=== PATIENT | female | born 1940 | race Caucasian/White ===

== ENCOUNTER → 2016-02-22 | Outpatient (CLI) | payer MEDICARE ==
--- OUTSIDE RECORDS SUMMARY | 2016-02-22 13:49 | XMS REPORT | Continuity of Care Document ---
Author Author [facility] Organization [facility] Address Unknown Phone Unavailable Care Team Providers Care Toy Assembler Name Role Phone ELDA BLACKWELL MD PCP Insurance Providers Payer Name Policy Number Subscriber Name Relationship [employer] [id number] Alejandra Sevilla 16 Self / Same As Patient Blue [employer] [facility] Supp [id number] Alejandra Sevilla 16 Self / Same As Patient Problems No problem information available. Medications No medication information available. Social History No social history. Hospital Discharge Instructions No hospital discharge instructions. Plan of Care Discharge Date 08/20/15 6:35am Prescriptions See Medication Section Functional Status No functional status results. Allergies, Adverse Reactions, Alerts No allergy information available. Immunizations No immunization records. Vital Signs No known vital signs results. Results No known relevant diagnostic tests, laboratory data and/or discharge summary. Procedures No known history of procedures. Encounters Encounter Location Arrival/Admit Date Discharge/Depart Date Attending Provider Departed Clinic [facility] 08/19/15 7:56pm 08/20/15 6: 35am SOTO BOWEN APRN
== END ==
LOC: RT 13:47
PROVIDERS: ATTEND Internal Medicine
DX: R05 Cough (principal); K21.9 Gastro-esophageal reflux disease without esophagitis
CPT/HCPCS: 94060; 94726; 94729

== ENCOUNTER → 2017-05-24 | Outpatient (CLI) | payer MEDICARE ==
--- NOTE | 2017-05-24 11:02 | Diagnostic Imaging Report ---
INDICATION: Routine screening. COMPARISON: 02/19/2015 and 08/30/2012. TECHNIQUE: Screening digital mammography was performed bilaterally with a Computer Aided Detection (CAD) system. FINDINGS: Scattered fibroglandular densities are identified bilaterally. An ovoid density in the retroareolar left breast appears stable. There is a tiny ovoid density that has developed in the outer portion of the right breast at mid depth. Additional views and ultrasound would be recommended for further evaluation. Benign calcifications are seen bilaterally. The axillae are unremarkable. IMPRESSION: There is a tiny ovoid right breast density, as described. Additional views including spot compression, ML, and rolled CC views are recommended. ACR BI-RADS Category 0: Incomplete. (Needs additional imaging evaluation). Result letter will be mailed to the patient. Note: At least 10% of breast cancer is not imaged by mammography. Dictated by: Dictated on workstation # [id number]
== END ==
LOC: RAD 09:49
PROVIDERS: ATTEND Internal Medicine
DX: Z12.31 Encounter for screening mammogram for malignant neoplasm of breast (principal)
CPT/HCPCS: 77067

== ENCOUNTER → 2017-06-01 | Outpatient (CLI) | payer MEDICARE ==
--- NOTE | 2017-06-01 11:43 | Diagnostic Imaging Report ---
INDICATION: Density in the lateral right breast. Study is performed for further evaluation. Correlation is made with a diagnostic mammogram earlier the same day and screening mammogram from 05/24/2017. Sonographic interrogation of the outer right breast was performed. No solid or cystic mass is identified. No sonographic abnormality is seen. IMPRESSION: BI-RADS 3 No sonographic abnormalities identified. Additional six-month followup of the right breast with mammography is recommended to confirm stability. ACR BI-RADS Category 3: Probably benign findings. Dictated by: Dictated on workstation # [id number]
--- NOTE | 2017-06-01 18:50 | Diagnostic Imaging Report ---
INDICATION: Right breast density. Patient presents for additional views. Correlation is made with prior screening mammogram from 05/24/2017 and prior mammogram from 02/19/2015. Patient returned and rolled CC as well as 3-D spot compression CC and MLO views as well as 3-D mediolateral view of the right breast was performed. The current study was also evaluated with a Computer Aided Detection (CAD) system. FINDINGS: Additional views demonstrate tiny residual density in the outer portion of the right breast at mid depth. Density appears to be at approximately the 9 o'clock location. No suspicious calcifications are seen. No other abnormalities are identified. IMPRESSION: Persistent tiny ovoid density in the outer right breast approximately 9 o'clock location mid depth. Further evaluation of this area with ultrasound is recommended. ACR BI-RADS Category 0: Incomplete. (Needs additional imaging evaluation). Result letter will be mailed to the patient. Note: At least 10% of breast cancer is not imaged by mammography. Dictated by: Dictated on workstation # [id number]
== END ==
LOC: RAD 08:28
PROVIDERS: ATTEND Internal Medicine
DX: R92.2 Inconclusive mammogram (principal)

== ENCOUNTER → 2018-02-20 | Outpatient (CLI) | payer MEDICARE ==
--- NOTE | 2018-02-20 15:53 | Diagnostic Imaging Report ---
INDICATION: COUGH. COMPARISON: 01/11/2016. FINDINGS: Frontal and lateral views of the chest demonstrate normal heart size and pulmonary vascularity. The lungs are clear. There are no signs of infiltrate, pleural effusions or pneumothoraces. The visualized osseous structures show no acute abnormalities. IMPRESSION: 1. No acute process. No signs of infiltrates, effusions or pneumothoraces. Dictated by: Dictated on workstation # [id number]
== END ==
LOC: RAD 15:08
PROVIDERS: ATTEND Nurse Practitioner
DX: R05 Cough (principal)
CPT/HCPCS: 71046

== ENCOUNTER → 2018-02-21 | Outpatient (CLI) | payer MEDICARE ==
--- NOTE | 2018-02-21 19:26 | Diagnostic Imaging Report ---
INDICATION: Right breast density. Patient presents for six-month follow-up. Correlation is made with prior mammograms from 06/01/2017, 05/24/2017, and 02/19/2015. Unilateral right 2-D and 3-D diagnostic mammography was performed with computer-aided Detection (CAD) system. FINDINGS: Scattered densities in right breast are noted. The tiny circumscribed ovoid density in the outer right breast at approximately 9 o'clock location at mid depth appears stable. No new mass is seen. There are benign calcifications in the right breast. The right axilla is unremarkable. IMPRESSION: Stable right breast density. This has fairly benign features. Follow-up mammogram in six months is recommended to confirm stability. ACR BI-RADS Category 3: Probably benign findings. Result letter will be mailed to the patient. Note: At least 10% of breast cancer is not imaged by mammography. Dictated by: Dictated on workstation # [id number]
== END ==
LOC: RAD 13:06
PROVIDERS: ATTEND Internal Medicine
DX: R92.2 Inconclusive mammogram (principal)

== ENCOUNTER → 2018-05-14 | Outpatient (CLI) | payer MEDICARE ==
--- NOTE | 2018-05-14 14:15 | Diagnostic Imaging Report ---
INDICATION: Dyspnea. TECHNIQUE: Two-view chest at 01:17 p.m. CORRELATION STUDY: 02/20/2018. FINDINGS: The heart size, mediastinal configuration and pulmonary vasculature are within normal limits. The lungs are clear with no consolidating infiltrate. There is no significant pleural effusion or pneumothorax. Visualized osseous structures are unremarkable. IMPRESSION: 1. Stable chest demonstrates no acute findings. Dictated by: Dictated on workstation # [id number]
== END ==
LOC: RAD 12:59
PROVIDERS: ATTEND Internal Medicine
DX: R06.00 Dyspnea, unspecified (principal)
CPT/HCPCS: 71046

== ENCOUNTER → 2018-06-04 | Outpatient (CLI) | payer MEDICARE | LOC: CARD 10:44 | PROVIDERS: ATTEND Internal Medicine Cardiovascular Disease | DX: R06.02 Shortness of breath (principal); R06.09 Other forms of dyspnea; R53.83 Other fatigue; I10 Essential (primary) hypertension; E66.01 Morbid (severe) obesity due to excess calories | CPT/HCPCS: 93306 ==

== ENCOUNTER → 2018-06-06 | Outpatient (CLI) | payer MEDICARE ==
[~2018-06-06] MED LIST: CATHETER FLUSH 10 ML SYR IV PRN; REGADENOSON 0.4 MG/5 ML SYR (LEXISCAN) IV ONE
[2018-06-06 09:41] VITALS: BP 182/80
--- NOTE | 2018-06-07 02:53 | STRESS TEST ---
DATE OF SERVICE: 06/06/2018 LEXISCAN MYOVIEW STRESS TEST REPORT REFERRING PHYSICIAN: Jose Clay MD Baseline heart rate is 72. Baseline blood pressure is 218/123. Baseline EKG is sinus rhythm with no ischemic changes. In summary, the patient was injected with 10.03 mCi of technetium-99 Myoview and the resting images were obtained. Then, the patient received 0.4 mg of Lexiscan followed by 28.9 mCi of technetium-99 Myoview. Throughout the test, there were no EKG changes. The resting and stress images were reviewed and compared in the short axis, horizontal long axis, and vertical long axis views. Review of the images showed breast attenuation with typical female pattern. No significant ischemia or infarction was seen. SSS is 3, SDS 3, TID value 0.93. On the gated images, the left ventricle appeared to be in normal size with normal contractility. Calculated ejection fraction is 63%. CONCLUSION: 1. The patient tolerated Lexiscan well. 2. Baseline hypertension persisted throughout test. 3. Breast attenuation with typical female pattern with no significant ischemia or infarction on SPECT images. 4. Normal left ventricular size with normal contractility. Calculated ejection fraction is 63%. Job ID: [id number] DocumentID: [id number] Dictated Date: 06/06/2018 20:58:46 Sand Operator Date: 06/07/2018 02:53:01 Dictated By: CONRAD SIMMS MD
== END ==
LOC: CARD 07:30
PROVIDERS: ATTEND Internal Medicine Cardiovascular Disease
DX: I10 Essential (primary) hypertension (principal); R06.09 Other forms of dyspnea; R06.02 Shortness of breath; R53.83 Other fatigue; E66.01 Morbid (severe) obesity due to excess calories
CPT/HCPCS: 78452; 93017

== ENCOUNTER → 2018-06-14 | Outpatient (CLI) | payer MEDICARE ==
--- NOTE | 2018-06-14 17:04 | Diagnostic Imaging Report ---
PROCEDURE: CT angiography of the chest with contrast. TECHNIQUE: Multiple contiguous axial images were obtained through the chest after uneventful bolus administration of intravenous contrast. 2D reconstructed CTA MIP acquisitions were also performed. Auto Exposure Controls were utilized during the CT exam to meet ALARA standards for radiation dose reduction. INDICATION: Dyspnea, positive D-dimer. FINDINGS: There are no prior CTA chest examinations available for comparison. This study is less than optimal as the pulmonary arteries are not fully opacified. There is no definite defect within the pulmonary arteries to indicate a pulmonary embolus. The aorta is not abnormally dilated, and there is no sign of a dissection. The heart size is borderline enlarged. The lungs are generally clear. There is no evidence for failure, pneumonia, or for a pleural effusion. There is no mediastinal or hilar adenopathy. The thyroid gland was not included on this study. There is no obvious breast mass. The sections through the upper abdomen show multiple gallstones within the gallbladder. There is no sign of acute cholecystitis, however. Also, there is a vague 2.2 x 3.9 cm area of diminished density in the right lobe of the liver near the falciform ligament. This finding is of uncertain etiology. It is possible that this could be related to a benign process such as a hemangioma. Even so, unless there are previous exams that demonstrate that this finding is stable, then CT of the abdomen and pelvis with hemangioma protocol would be recommended for further study. The bone windows show no sign of a fracture or of a destructive lesion. IMPRESSION: 1. There is no evidence for an acute cardiopulmonary abnormality. In particular, there is no sign of a pulmonary embolus or of a dissection. 2. The area of diminished density within the right lobe of the liver is of uncertain etiology. Considerations and recommendations as above. 3. There is cholelithiasis, but there is no evidence for acute cholecystitis. Dictated by: Dictated on workstation # [id number]
== END ==
LOC: RAD 15:20
PROVIDERS: ATTEND Internal Medicine
DX: K80.20 Calculus of gallbladder without cholecystitis without obstruction (principal); K76.89 Other specified diseases of liver; I51.7 Cardiomegaly; R06.00 Dyspnea, unspecified; R79.1 Abnormal coagulation profile
CPT/HCPCS: 71275

== ENCOUNTER → 2018-06-20 | Outpatient (CLI) | payer MEDICARE ==
[~2018-06-20] MED LIST changes: -CATHETER FLUSH 10 ML SYR IV PRN; +HOLD METFORMIN - RECEIVED CONTRAST 20 ML VIAL IV SCH; +IOHEXOL 350 MG/ML 100 ML (OMNIPAQUE 350) VIAL IV ONE; -REGADENOSON 0.4 MG/5 ML SYR (LEXISCAN) IV ONE
--- NOTE | 2018-06-20 17:16 | Diagnostic Imaging Report ---
PROCEDURE: CT abdomen and pelvis with contrast. TECHNIQUE: Multiple contiguous axial images were obtained through the abdomen and pelvis after administration of intravenous contrast. Auto Exposure Controls were utilized during the CT exam to meet ALARA standards for radiation dose reduction. INDICATION: Abnormal prior CT, followup liver lesion. COMPARISON: CT chest from 06/14/2018. FINDINGS: In segment 5 of the liver, there is a hypoattenuating lesion measuring approximately 1.8 x 1.0 cm (image 27 series 6). There is adjacent subtle hypodensity closer to the falciform ligament, which was more pronounced on the prior CTA of the chest but is not well seen on today's exam despite multiple phases. Density appears to be the same on arterial, venous, delayed, and precontrast imaging. There is no appreciable enhancement. This likely represents focal fatty infiltration. There are numerous gas-filled stones in the gallbladder. There is a simple appearing 2.1 cm cyst in the inferior left kidney. No hydronephrosis is seen. The spleen appears normal. The pancreas is normal. The adrenal glands appear normal. The bowel loops are nondistended without obstruction. The appendix appears normal. There is diverticulosis of the distal colon. The distal colon is also decompressed, but no diverticulitis is seen. No free fluid or free air is seen. No acute osseous abnormality is seen. There is a small fat-containing periumbilical hernia. IMPRESSION: 1. Lesion in the right liver most likely represents focal fatty infiltration. No other lesions are seen. 2. Marked cholelithiasis. 3. Colonic diverticulosis without diverticulitis. Dictated by: Dictated on workstation # [id number]
== END ==
LOC: RAD 15:31
PROVIDERS: ATTEND Internal Medicine
DX: K80.20 Calculus of gallbladder without cholecystitis without obstruction (principal); K57.30 Diverticulosis of large intestine without perforation or abscess without bleeding; K76.9 Liver disease, unspecified
CPT/HCPCS: 74177

== ENCOUNTER 2018-07-20 15:31 | Outpatient (RCR) | payer MEDICARE | END 2018-07-25 | disposition home or self-care (01) | LOC: CR3 15:31 | PROVIDERS: ATTEND Internal Medicine Cardiovascular Disease | DX: Z29.8 Encounter for other specified prophylactic measures (principal) ==

== ENCOUNTER 2018-07-30 14:00 | Outpatient (RCR) | payer MEDICARE | END 2018-08-29 | disposition home or self-care (01) | LOC: CR3 14:00 | PROVIDERS: ATTEND Internal Medicine Cardiovascular Disease | DX: Z29.8 Encounter for other specified prophylactic measures (principal) ==

== ENCOUNTER → 2021-12-10 | Outpatient (CLI) | payer MEDICARE ==
--- NOTE | 2021-12-13 10:20 | Diagnostic Imaging Report ---
INDICATION: Routine screening. Comparison is made with prior mammogram from 02/15/2019 and 02/21/2018. 2-D and 3-D bilateral screening mammography was performed with CAD. Scattered fibroglandular densities are identified bilaterally. There are scattered benign calcifications in both breasts. No mass or malignant-appearing microcalcifications are seen. Axillae are unremarkable. IMPRESSION: No mammographic features suspicious for malignancy are identified. ACR BI-RADS Category 2: Benign findings. Result letter will be mailed to the patient. Note: At least 10% of breast cancer is not imaged by mammography. BI-RADS Category 2 Dictated by: Dictated on workstation # [id number]
== END ==
LOC: RAD 14:47
PROVIDERS: ATTEND Nurse Practitioner Family
DX: Z12.31 Encounter for screening mammogram for malignant neoplasm of breast (principal)
CPT/HCPCS: 77063; 77067

== ENCOUNTER → 2022-09-15 | Outpatient (CLI) | payer MEDICARE ==
--- NOTE | 2022-09-15 10:19 | Diagnostic Imaging Report ---
PROCEDURE: US Hepatic (Liver). TECHNIQUE: Multiple real-time grayscale images were obtained over the right upper quadrant in various projections. INDICATION: Abdominal pain. FINDINGS: There are gallstones present, the gallbladder wall 4 mm. No pericholecystic fluid. The Ahuja sign was negative. There is no intra or extrahepatic bile duct dilatation however much of the extrahepatic duct is obscured from visualization by bowel gas. The unobstructed right kidney is 9.2 cm and appeared nonacute. The pancreas is largely obscured by gas. Visible portions unremarkable. No ascites or acute fluid collection. IMPRESSION: Cholelithiasis with no appreciable bile duct dilatation. Dictated by: Dictated on workstation # [id number]
== END ==
LOC: RAD 07:53
PROVIDERS: ATTEND Internal Medicine
DX: K80.20 Calculus of gallbladder without cholecystitis without obstruction (principal)
CPT/HCPCS: 76705